=== PATIENT | male | born 1975 | race Caucasian/White ===

== ENCOUNTER 2017-11-12 11:08 | Emergency (ER) | payer OTHER ==
[~2017-11-12] VITALS: Ht 175.3 cm; Wt 64.0 kg
[2017-11-12] MEDS ORDERED: KEFLEX500 M1 PO (12:54)
[2017-11-12] MEDS ORDERED: NAPROSYN500 MG PO (13:18)
[2017-11-12 13:19] VITALS: BP 139/87
== END 2017-11-12 13:20 | disposition home or self-care (01) ==
LOC: ER 11:08
DX: S66.326A Laceration of extensor muscle, fascia and tendon of right little finger at wrist and hand level, initial encounter (principal); S61.111A Laceration without foreign body of right thumb with damage to nail, initial encounter; Z88.0 Allergy status to penicillin; W27.0XXA Contact with workbench tool, initial encounter; Y92.009 Unspecified place in unspecified non-institutional (private) residence as the place of occurrence of the external cause; Y93.89 Activity, other specified; Y99.8 Other external cause status